=== PATIENT | male | born 1960 | race Caucasian/White ===

== ENCOUNTER 2020-10-04 20:38 | Inpatient (IN) | payer OTHER ==
[~2020-10-04] VITALS: Ht 177.8 cm; Wt 67.6 kg
[2020-10-04 20:58] VITALS: BP 125/75
[2020-10-04] MEDS ORDERED: PREVACID30 MG PO (21:03)
[2020-10-04 21:09] LABS: URINE CLARITY CLOUDY; URINE COLOR BROWN
[2020-10-04 21:19] LABS: HYALINE CASTS >10 Many /LPF (None Seen); MUCUS >6 Heavy strn/LPF (None Seen)
[2020-10-04 21:21] LABS: URINE WBC-REFLEX 6-15 Few /HPF (0-5)
[2020-10-04 21:22] LABS: BACTERIA-REFLEX 1-9 Few /HPF (None Seen)
[2020-10-04 21:24] LABS: CRYSTALS None Seen /LPF (None Seen); SQUAMOUS NONE SEEN /LPF (0-3); URINE RBC 0-2 Rare /HPF (0-2)
[2020-10-04 21:26] LABS: ABSOLUTE MONOCYTES 0.7 thou/uL (0.0-1.2); HEMATOCRIT 26.9 % (42.0-52.0); HEMOGLOBIN 9.2 gm/dL (14.0-18.0); MCHC 34.1 g/dL (28.0-37.0); PLATELET COUNT* 247 thou/uL (150-400); RBC 2.13 mil/uL (4.50-6.00); WBC 13.1 thou/uL (4.0-11.0)
[2020-10-04 21:28] LABS: ABSOLUTE LYMPHOCYTES 2.2 thou/uL (0.8-5.3); BASOPHILS 0.2 %; EOSINOPHILS 0.2 %; LYMPHOCYTES 17.2 %; MCV 126.1 fL (80.0-100.0); MONOCYTES 5.6 %; MPV 8.3 fl. (7.2-11.1); NUCLEATED RBCS 0 /100WBC; POLYS 76.8 %; RDW-CV 18.4 % (10.5-14.5)
[2020-10-04 21:33] LABS: CALCIUM 9.9 mg/dL (8.5-10.1); CREATININE 0.7 mg/dL (0.6-1.3)
[2020-10-04 21:35] LABS: POTASSIUM 2.6 mmol/L (3.5-5.1)
[2020-10-04 21:39] LABS: INR 1.3; PROTIME 13.4 Seconds (9.20-11.50)
[2020-10-04 21:44] LABS: ALBUMIN 2.5 g/dL (3.4-5.0); MAGNESIUM 1.8 mg/dL (1.8-2.4); TOTAL BILIRUBIN 11.1 mg/dL (<0.1-1.0)
[2020-10-04 22:02] LABS: HYPOCHROMASIA 1+; TARGET CELLS Occasional
[2020-10-04 22:03] LABS: POLYCHROMASIA Occasional
[2020-10-04 22:04] LABS: PLATELET ESTIMATE ADEQUATE
[2020-10-04 22:05] LABS: ANISOCYTOSIS 1+; MACROCYTES 2+
[2020-10-04 23:30] VITALS: BP 107/57
[2020-10-04 23:33] VITALS: BP 115/70
[2020-10-05] VITALS (7 sets, daily range): BP systolic 91–117; BP diastolic 55–81
--- NOTE | 2020-10-05 09:33 | EKG ---
[place] [address] ELECTROCARDIOGRAM REPORT Name: DAPHNEY KUHN Room: [address] ADM IN M.R.#: [id number] Admission: 10/04/20 Attend Phys: Franco Lane Discharge: Date of : 60 Date of Service: 10/04/202106 Report #: [id number] THIS REPORT FOR: //name// [facility] ED Test Date: 2020-10-04 Test Time: 21:07:36 Pat Name: DAPHNEY KUHN Department: Room: [facility] Gender: M Geophysical Observer: JAIRO : 1960 Requested By: Nya Guthrie Order Number: [id number] MD: Stan Posada Measurements Intervals [place] Rate: 90 P: 60 TX: 133 QRS: 32 QRSD: 93 T: -5 QT: 436 QTc: 534 Interpretive Statements Sinus rhythm Nonspecific T abnormalities, anterior leads Prolonged QT interval No previous ECG available for comparison Electronically Signed On 10-05-2020 9:32:53 [employer] OFFICER by Stan Posada [email or web address] <ELECTRONICALLY SIGNED> By: Stan Posada MD, MERGED WITH [facility] 10/05/20 0932 06 06 Stan Posada MD, MERGED WITH [facility] /EPI
[2020-10-05 09:40] LABS: MCH 43.2 pg (26.0-34.0); MCHC 34.1 g/dL (28.0-37.0); MCV 126.7 fL (80.0-100.0); MPV 8.5 fl. (7.2-11.1); NUCLEATED RBCS 0 /100WBC; PLATELET COUNT* 152 thou/uL (150-400); RBC 1.58 mil/uL (4.50-6.00); RDW-CV 18.6 % (10.5-14.5); WBC 7.3 thou/uL (4.0-11.0)
[2020-10-05 09:43] LABS: HEMOGLOBIN 6.8 gm/dL (14.0-18.0)
[2020-10-05 09:49] LABS: ALBUMIN 1.8 g/dL (3.4-5.0); CALCIUM 8.8 mg/dL (8.5-10.1); CREATININE 0.5 mg/dL (0.6-1.3); POTASSIUM 2.9 mmol/L (3.5-5.1); TOTAL BILIRUBIN 7.8 mg/dL (<0.1-1.0); TOTAL PROTEIN 4.4 g/dL (6.4-8.2)
[2020-10-05 10:18] LABS: ABSOLUTE LYMPHOCYTES 0.7 thou/uL (0.8-5.3); ABSOLUTE MONOCYTES 0.2 thou/uL (0.0-1.2); ABSOLUTE NEUTROPHILS 6.4 thou/uL (1.6-8.1); PLATELET ESTIMATE ADEQUATE
[2020-10-05 10:20] LABS: MACROCYTES Occasional; MICROCYTES Occasional
[2020-10-05 10:21] LABS: HYPOCHROMASIA Occasional
[2020-10-05 10:22] LABS: ANISOCYTOSIS 1+
[2020-10-05 19:32] LABS: HEMATOCRIT 27.4 % (42.0-52.0)
[2020-10-05 19:34] LABS: HEMOGLOBIN 9.4 gm/dL (14.0-18.0)
[2020-10-06 03:35] VITALS: BP 110/62
[2020-10-06 04:39] LABS: ABSOLUTE BASOPHILS 0.1 thou/uL (0.0-0.2); ABSOLUTE EOSINOPHILS 0.1 thou/uL (0.0-0.7); ABSOLUTE MONOCYTES 0.6 thou/uL (0.0-1.2); ABSOLUTE NEUTROPHILS 7.3 thou/uL (1.6-8.1); BASOPHILS 0.7 %; EOSINOPHILS 0.9 %; HEMATOCRIT 25.5 % (42.0-52.0); HEMOGLOBIN 8.8 gm/dL (14.0-18.0); LYMPHOCYTES 11.2 %; MCH 40.4 pg (26.0-34.0); MCHC 34.4 g/dL (28.0-37.0); MONOCYTES 6.1 %; NUCLEATED RBCS 0 /100WBC; PLATELET COUNT* 170 thou/uL (150-400); POLYS 81.1 %; RBC 2.17 mil/uL (4.50-6.00); RDW-CV 26.5 % (10.5-14.5)
[2020-10-06 04:47] LABS: ALBUMIN 1.9 g/dL (3.4-5.0); CALCIUM 8.9 mg/dL (8.5-10.1); CREATININE 0.5 mg/dL (0.6-1.3); DIRECT BILIRUBIN 7.6 mg/dL (<0.1-0.3); POTASSIUM 3.2 mmol/L (3.5-5.1); TOTAL BILIRUBIN 9.2 mg/dL (<0.1-1.0); TOTAL PROTEIN 4.7 g/dL (6.4-8.2)
[2020-10-06 04:59] LABS: MCV 117.7 fL (80.0-100.0)
[2020-10-06 08:00] VITALS: BP 88/59
[2020-10-06 08:04] LABS: ANISOCYTOSIS 3+; MACROCYTES 3+; PLATELET ESTIMATE ADEQUATE
[2020-10-06 12:31] VITALS: BP 122/53
[2020-10-06 15:55] VITALS: BP 116/74
[2020-10-06 20:00] VITALS: BP 95/55
[2020-10-06 23:45] VITALS: BP 100/72
[2020-10-07 03:26] VITALS: BP 90/53
[2020-10-07 04:37] LABS: ABSOLUTE BASOPHILS 0.1 thou/uL (0.0-0.2); ABSOLUTE EOSINOPHILS 0.1 thou/uL (0.0-0.7); ABSOLUTE LYMPHOCYTES 1.3 thou/uL (0.8-5.3); ABSOLUTE MONOCYTES 0.8 thou/uL (0.0-1.2); ABSOLUTE NEUTROPHILS 6.7 thou/uL (1.6-8.1); EOSINOPHILS 1.4 %; HEMATOCRIT 25.8 % (42.0-52.0); HEMOGLOBIN 8.9 gm/dL (14.0-18.0); INR 1.1; LYMPHOCYTES 14.1 %; MCH 40.5 pg (26.0-34.0); MCHC 34.4 g/dL (28.0-37.0); MCV 117.8 fL (80.0-100.0); MONOCYTES 8.8 %; NUCLEATED RBCS 0 /100WBC; PLATELET COUNT* 161 thou/uL (150-400); POLYS 74.7 %; PROTIME 12.1 Seconds (9.20-11.50); RBC 2.19 mil/uL (4.50-6.00); RDW-CV 26.2 % (10.5-14.5)
[2020-10-07 04:44] LABS: ALBUMIN 1.9 g/dL (3.4-5.0); CALCIUM 8.8 mg/dL (8.5-10.1); CREATININE 0.5 mg/dL (0.6-1.3); POTASSIUM 3.3 mmol/L (3.5-5.1); TOTAL BILIRUBIN 9.6 mg/dL (<0.1-1.0); TOTAL PROTEIN 4.7 g/dL (6.4-8.2)
[2020-10-07 07:07] LABS: HEPATITIS B SURFACE AG Negative (Negative)
[2020-10-07 08:00] VITALS: BP 104/73
[2020-10-07 08:27] LABS: ANISOCYTOSIS 3+; MACROCYTES 3+
[2020-10-07 12:00] VITALS: BP 106/61
[2020-10-07 16:00] VITALS: BP 127/86
[2020-10-07 20:00] VITALS: BP 112/65
[2020-10-08] VITALS: BP 104/65
[2020-10-08 04:49] VITALS: BP 118/68
[2020-10-08 04:59] LABS: HEMATOCRIT 25.1 % (42.0-52.0); HEMOGLOBIN 8.6 gm/dL (14.0-18.0); MCH 40.4 pg (26.0-34.0); MCHC 34.1 g/dL (28.0-37.0); MCV 118.5 fL (80.0-100.0); MPV 7.9 fl. (7.2-11.1); NUCLEATED RBCS 0 /100WBC; PLATELET COUNT* 149 thou/uL (150-400); RBC 2.12 mil/uL (4.50-6.00); RDW-CV 26.1 % (10.5-14.5); WBC 9.6 thou/uL (4.0-11.0)
[2020-10-08 05:13] LABS: ALBUMIN 1.7 g/dL (3.4-5.0); CALCIUM 8.6 mg/dL (8.5-10.1); CREATININE 0.6 mg/dL (0.6-1.3); MAGNESIUM 1.5 mg/dL (1.8-2.4); PHOSPHORUS* 1.2 mg/dL (2.5-4.9); TOTAL PROTEIN 4.5 g/dL (6.4-8.2)
[2020-10-08 05:47] LABS: ABSOLUTE LYMPHOCYTES 0.6 thou/uL (0.8-5.3); ABSOLUTE MONOCYTES 0.9 thou/uL (0.0-1.2); ABSOLUTE NEUTROPHILS 8.2 thou/uL (1.6-8.1)
[2020-10-08 05:48] LABS: ANISOCYTOSIS 2+; HYPOCHROMASIA 1+; MACROCYTES 3+; PLATELET ESTIMATE DECREASED; POIKILOCYTOSIS 1+; POLYCHROMASIA 1+
[2020-10-08 08:00] VITALS: BP 110/73
[2020-10-08 12:21] VITALS: BP 102/62
[2020-10-08 16:00] VITALS: BP 103/58
[2020-10-08 16:38] LABS: MAGNESIUM 2.4 mg/dL (1.8-2.4); POTASSIUM 3.2 mmol/L (3.5-5.1)
[2020-10-08 20:00] VITALS: BP 96/67
[2020-10-09] VITALS: BP 110/72
[2020-10-09 04:30] LABS: HEMATOCRIT 27.8 % (42.0-52.0); HEMOGLOBIN 9.3 gm/dL (14.0-18.0); MCHC 33.4 g/dL (28.0-37.0); MCV 119.8 fL (80.0-100.0); MPV 8.2 fl. (7.2-11.1); RBC 2.32 mil/uL (4.50-6.00); RDW-CV 25.6 % (10.5-14.5); WBC 12.3 thou/uL (4.0-11.0)
[2020-10-09 04:37] VITALS: BP 92/52
[2020-10-09 04:51] LABS: ALBUMIN 1.9 g/dL (3.4-5.0); CALCIUM 8.6 mg/dL (8.5-10.1); CREATININE 0.6 mg/dL (0.6-1.3); MAGNESIUM 2.3 mg/dL (1.8-2.4); POTASSIUM 3.5 mmol/L (3.5-5.1); TOTAL BILIRUBIN 9.7 mg/dL (<0.1-1.0); TOTAL PROTEIN 5.1 g/dL (6.4-8.2)
[2020-10-09 08:00] VITALS: BP 95/48
[2020-10-09] MEDS ORDERED: LACTULOSE20 GM/30 M PO (09:22)
[2020-10-09] MEDS ORDERED: VITAMIN B-1100 M1 PO (09:22)
[2020-10-09] MEDS ORDERED: PRENATAL PO (09:22)
[2020-10-09] MEDS ORDERED: CEFDINIR300 MG PO (09:22)
[2020-10-09] MEDS ORDERED: PHENERGAN 25 MG25 M1 PO (09:22)
[2020-10-09] MEDS ORDERED: ONDANSETRON HCL4 M2 PO (09:22)
[2020-10-09 12:00] VITALS: BP 95/62
[2020-10-09 15:50] VITALS: BP 96/64
[2020-10-09 20:00] VITALS: BP 95/67
[2020-10-10] VITALS: BP 97/67
[2020-10-10 04:27] LABS: HEMOGLOBIN 8.8 gm/dL (14.0-18.0); MCH 40.6 pg (26.0-34.0); MCHC 33.9 g/dL (28.0-37.0); MCV 119.8 fL (80.0-100.0); MPV 8.5 fl. (7.2-11.1); RBC 2.17 mil/uL (4.50-6.00); WBC 10.6 thou/uL (4.0-11.0)
[2020-10-10 04:38] LABS: ALBUMIN 1.7 g/dL (3.4-5.0); CALCIUM 8.5 mg/dL (8.5-10.1); CREATININE 0.6 mg/dL (0.6-1.3); PHOSPHORUS* 3.2 mg/dL (2.5-4.9); TOTAL BILIRUBIN 9.4 mg/dL (<0.1-1.0); TOTAL PROTEIN 4.5 g/dL (6.4-8.2)
[2020-10-10 04:48] LABS: POTASSIUM 2.8 mmol/L (3.5-5.1)
[2020-10-10 06:08] VITALS: BP 104/64
[2020-10-10 08:00] VITALS: BP 90/64
[2020-10-10 11:26] LABS: ALBUMIN 1.7 g/dL (3.4-5.0); CALCIUM 8.5 mg/dL (8.5-10.1); CREATININE 0.6 mg/dL (0.6-1.3); TOTAL BILIRUBIN 9.7 mg/dL (<0.1-1.0); TOTAL PROTEIN 4.7 g/dL (6.4-8.2)
[2020-10-10 11:31] LABS: POTASSIUM 2.9 mmol/L (3.5-5.1)
[2020-10-10 11:32] VITALS: BP 94/60
[2020-10-10 14:00] VITALS: BP 97/64
[2020-10-10 15:00] LABS: URINE CLARITY CLOUDY; URINE COLOR BROWN
[2020-10-10 15:01] LABS: URINE REDUCING SUBSTANCE NEGATIVE (Negative); URINE SPECIFIC GRAVITY 1.024 (1.005-1.030)
[2020-10-10 15:02] LABS: ACETEST (KETONE CONFIRMATORY) Negative (Negative); ICTOTEST (BILI CONFIRMATORY) Positive (Negative)
[2020-10-10 15:10] LABS: SQUAMOUS 4-10 Moderate /LPF (0-3)
[2020-10-10 15:11] LABS: BACTERIA-REFLEX 1-9 Few /HPF (None Seen); HYALINE CASTS 0-3 Few /LPF (None Seen); URINE RBC 0-2 Rare /HPF (0-2); URINE WBC-REFLEX 0-5 Rare /HPF (0-5)
[2020-10-10 20:30] VITALS: BP 97/68
[2020-10-11 00:14] VITALS: BP 94/68
[2020-10-11 05:10] VITALS: BP 148/58; BP 96/61
[2020-10-11 08:00] VITALS: BP 98/63
[2020-10-11 11:34] VITALS: BP 90/55
[2020-10-11 16:20] VITALS: BP 109/67
[2020-10-11 20:30] VITALS: BP 105/70
[2020-10-12] VITALS (9 sets, daily range): BP systolic 93–116; BP diastolic 51–74
[2020-10-12] MEDS ORDERED: POTASSIUM20 PO (11:24)
[2020-10-14 07:08] LABS: CMV IgM Abs 44.9
[2020-10-14 07:09] LABS: EBV EA IgG <9.0; EBV VCA IgM <36.0
[2020-10-14 07:10] LABS: EBNA-1 IgG >600.0
== END 2020-10-12 19:05 | disposition home health service (06) | DRG 871 ==
LOC: M.ERS 20:38 → M.2W 21:55 → M.TBA-ER 21:55 → M.2W 23:28
PROVIDERS: Emergency Medicine; Internal Medicine; Surgery; ADMIT Internal Medicine; ATTEND Internal Medicine
PROC: 30233N1 Transfusion of Nonautologous Red Blood Cells into Peripheral Vein, Percutaneous Approach (ICD-10-PCS; principal; 2020-10-05)
PROC: 0DJ08ZZ Inspection of Upper Intestinal Tract, Via Natural or Artificial Opening Endoscopic (ICD-10-PCS; 2020-10-06)
DX: A41.9 Sepsis, unspecified organism (principal); E43 Unspecified severe protein-calorie malnutrition; G93.41 Metabolic encephalopathy; J69.0 Pneumonitis due to inhalation of food and vomit; E87.1 Hypo-osmolality and hyponatremia; K80.00 Calculus of gallbladder with acute cholecystitis without obstruction; I85.00 Esophageal varices without bleeding; K76.6 Portal hypertension; N39.0 Urinary tract infection, site not specified; J98.11 Atelectasis; F12.90 Cannabis use, unspecified, uncomplicated; E87.6 Hypokalemia; I95.9 Hypotension, unspecified; R74.01 Elevation of levels of liver transaminase levels; E80.6 Other disorders of bilirubin metabolism; D64.9 Anemia, unspecified; F17.210 Nicotine dependence, cigarettes, uncomplicated; K70.10 Alcoholic hepatitis without ascites; K44.9 Diaphragmatic hernia without obstruction or gangrene; E87.8 Other disorders of electrolyte and fluid balance, not elsewhere classified; K31.89 Other diseases of stomach and duodenum; R09.02 Hypoxemia; K72.90 Hepatic failure, unspecified without coma; N28.1 Cyst of kidney, acquired; F10.21 Alcohol dependence, in remission; Z20.822 Contact with and (suspected) exposure to COVID-19; Z79.899 Other long term (current) drug therapy; Z68.21 Body mass index [BMI] 21.0-21.9, adult